=== PATIENT | female | born 1990 | race Caucasian/White ===

== ENCOUNTER 2017-06-16 12:26 | Emergency (ER) | payer OTHER ==
[~2017-06-16] VITALS: Ht 170.2 cm; Wt 54.4 kg
--- NOTE | 2017-06-16 12:45 | NUR ---
[id number], came to er FROM [facility]: HERE FOR CHEST X-RAY TO R/O TB. PPD+ ON 06/04/17. RR is even and unlabored with NAD noted. Skin is warm and dry. Awaiting md for eval.
--- NOTE | 2017-06-16 13:15 | NUR ---
XRAY in progress at [facility].
--- NOTE | 2017-06-16 13:20 | NUR ---
Patient declines test and states "I'm not ". MARLEN Le made aware.
--- NOTE | 2017-06-16 14:08 | NUR ---
MARLEN SCHNEIDER AT [facility] FOR AN UPDATE AND RE-EVAL.
[2017-06-16 14:10] VITALS: BP 104/62
== END 2017-06-16 14:11 | disposition home or self-care (01) ==
LOC: ER 12:30
DX: Z13.89 Encounter for screening for other disorder (principal); F17.200 Nicotine dependence, unspecified, uncomplicated; Z88.1 Allergy status to other antibiotic agents
CPT/HCPCS: 71045; 99283; A4606; Z7610